=== PATIENT | female | born 1940 | race Native Hawaiian/Other Pacific Islander ===

== ENCOUNTER 2017-01-01 08:02 | Day surgery (SDC) | payer MEDICARE, MEDICAID ==
[2016-12-31 13:10] VITALS: BMI 24.4
[~2017-01-01 08:02] MED LIST: Clindamycin 2% Vaginal Cream(40 gm) ONE; HEPARIN-NS 5,000 UNITS/500 ML 5,000 UNIT/500 ML BAG IV ONE; ceFAZolin IV 1 gm in Dextrose 1 GM/50 ML BAG IVPB ONE
[2017-01-01] MEDS ORDERED: Thrombin Topical 5,000 IU Spray Kit ONE (08:58)
[2017-01-01] MEDS ORDERED: Absorbable Gelatin Sponge Size 100 ONE (08:58)
[2017-01-01] MEDS ORDERED: Propofol 10 mg/ml Inj (20 ML) ONE (09:10)
[2017-01-01 09:18] LABS: POTASSIUM 5.5 mmol/L (3.6-5.2)
[2017-01-01] MEDS ORDERED: Sodium Chloride 0.9% 500 ML IV ONE ×2 (09:20→11:00)
[2017-01-01 09:21] LABS: CALCIUM 8.6 mg/dl (8.6-10.4)
--- NOTE | 2017-01-01 12:10 | PCM.SURG1 ---
Surgeon's Initial Post Op Note - Surgeon's Notes Surgeon: Dr. Almodovar Mercury Cell Cleaner: Dr. No PGY-2, Sabino Nicolas OMS-3 Type of Anesthesia: General Endo Pre-Operative Diagnosis: CKD Operative Findings: see operative report Post-Operative Diagnosis: see operative report Operation Performed: superficialization of R AVF Specimen/Specimens Removed: none Estimated Blood Loss: EBL {In ML}: 10 Blood Products Given: N/A Drains Used: No Drains Post-Op Condition: Good Date of Surgery/Procedure: 01/01/17 Time of Surgery/Procedure: 12:09
[2017-01-01] MEDS ORDERED: HYDROmorphone 0.5 mg/0.5 ml ISec IVP PRN (14:00)
[2017-01-01 15:01] VITALS: O2SAT 97
[2017-01-01 15:04] VITALS: BP 110/68; PULSE 88; RESP 20; TEMP 98
--- NOTE | 2017-01-01 16:32 | OP ---
DATE OF PROCEDURE: 01/01/2017 SURGEON: Dr. Almodovar ANESTHESIA: General anesthesia. COMPLICATIONS: No complications during the procedure. INDICATIONS FOR PROCEDURE: Ms. Redding is a 76-year-old female patient with multiple medical problems including end-stage renal disease. The patient had multiple dialysis accesses. Recently, the patient had right basilic vein access, right brachiocephalic AV fistula, and 2 months after the procedure, the fistula grew up in size and it needs superficialization to be able to use it. Risks and benefits were explained to the family and the patient. They agreed to proceed. DESCRIPTION OF PROCEDURE: The patient came to the operating room. She was lying in a supine position. She was prepped and draped in usual sterile fashion. A longitudinal incision was made over the fistula. The incision was carried down through the subcutaneous tissue down to the fascia. We opened it to identify the vein and dissected around with a vessel loop. We continued opening the skin from the antecubital area up to the axilla over the course of the fistula and we continued opening the sheath, dissected the fistula from surrounding structures, and also ligated the venous tributaries, and after we finished the ligation *------*for all these branches up to the axilla, we brought the fistula up hemostatically securing the area, and we closed the fascia using 2-0 Vicryl and rechecked no kink or pressure on the fistula. We closed subcutaneously using 3-0 and skin with 4-0 Monocryl. No complication. The patient tolerated the procedure well, transferred to recovery room *------* today for dialysis. No complication during the procedure. Taz Almodovar MD
== END 2017-01-01 14:05 | disposition home or self-care (01) ==
LOC: C.SDS 08:02
PROVIDERS: ATTEND Surgery
DX: N18.6 End stage renal disease (principal)
CPT/HCPCS: 36415; 36832; 80048; 85610; 85730; J0690; J2001; J2405; J2704; J3010; J7040